=== PATIENT | male | born 1955 | race Caucasian/White ===

== ENCOUNTER 2018-03-18 17:32 | Emergency (ER) | payer BC ==
[2018-03-18] MEDS ORDERED: Aspirin 81 MG Tab.Chew PO ONE (17:41)
[2018-03-18] MEDS ORDERED: Metoprolol Tartrate 5 MG/5 ML SDV IVPUSH ONE (17:42)
[2018-03-18] MEDS ORDERED: Nitroglycerin 0.4 MG Tab.SL SL ONE (17:42)
[2018-03-18] MEDS ORDERED: Clopidogrel 75 MG Tab PO ONE ×2 (17:43→17:48)
[2018-03-18] MEDS ORDERED: Heparin Sodium 5,000 Units/ML Vial IVPUSH ONE (17:44)
[2018-03-18] MEDS ORDERED: Heparin Sodium/0.45% NaCl 25,000 UNITS/500 ML BAG IV SCH (17:45)
[2018-03-18 17:53] LABS: CHLORIDE,CL 106 mmol/L (98-109); SODIUM,NA 144 mmol/L (138-146)
[2018-03-18 17:54] LABS: ANION GAP 17.9 mmol/L (10-20)
[2018-03-18] MEDS ORDERED: Heparin Sodium/0.45% NaCl 500 ML ONE (17:55)
--- NOTE | 2018-03-18 17:56 | EDM.PDOC ---
ED HPI GENERAL MEDICAL PROBLEM - General Chief Complaint: Chest Pain Stated Complaint: chset pain Time Seen by Provider: 03/18/18 17:32 - History of Present Illness INITIAL COMMENTS - FREE TEXT/NARRATIVE: Patient is here because he started having chest pain about 20 minutes prior to arrival in the ER. He states he was lifting furniture when the pain started. He did not have any nitro on hand. He came right to the ER. Patient has a history of stents. Onset: Today, Sudden Onset Date: 03/18/18 Onset Time: 17:00 - Related Data Allergies Allergy/AdvReac Type Severity Reaction Status Date / Time No Known Drug Allergies Allergy Other Verified 07/17/17 22:56 Home Meds: Home Meds Aspirin [Halfprin] 162 mg PO DAILY 12/29/13 [History] Nitroglycerin [Nitrostat] 0.4 mg SL ASDIRECTED PRN 12/29/13 [History] Rosuvastatin [Crestor] 40 mg PO BEDTIME 12/29/13 [History] Isosorbide Mononitrate [Imdur] 30 mg PO DAILY 07/18/17 [History] buPROPion HCl [Wellbutrin Xl] 300 mg PO DAILY 07/18/17 [History] Past Medical History HEENT History: Reports: Other (See Below) Other HEENT History: TMJ Cardiovascular History: Reports: Angina, CAD, High Cholesterol, CT, Stents Respiratory History: Reports: Sleep Apnea Gastrointestinal History: Reports: GERD Neurological History: Reports: Other (See Below) Other Neuro History: tension headaches Psychiatric History: Reports: Anxiety, Depression - Past Surgical History Cardiovascular Surgical History: Reports: Coronary Artery Stent ED ROS GENERAL - Review of Systems Review Of Systems: See Below Constitutional: Denies: Fever, Chills, Weakness Respiratory: Denies: Shortness of Breath, Cough Cardiovascular: Reports: Chest Pain, Blood Pressure Problem. Denies: Palpitations GI/Abdominal: Reports: Nausea. Denies: Abdominal Pain, Vomiting Skin: Reports: No Symptoms Neurological: Reports: No Symptoms ED EXAM, GENERAL - Physical Exam Exam: See Below General Appearance: Alert, Anxious, Moderate Distress Respiratory/Chest: No Respiratory Distress, Lungs Clear, Normal Breath Sounds Cardiovascular: Normal Peripheral Pulses, Regular Rate, Rhythm Peripheral Pulses: 2+: Radial (L), Radial (R) GI/Abdominal: Normal Bowel Sounds, Soft, Non-Tender Neurological: Alert, Oriented Skin Exam: Warm, Dry, Intact, Normal Color Course - Orders/Labs/Meds Orders: Active Orders 24 hr Category Date Time Status EKG 12 Lead [EKG Documentation Completion] [RC] STAT Care 03/18/18 17:44 Active BASIC METABOLIC PANEL,BMP [CHEM] Stat Lab 03/18/18 17:41 Ordered CBC WITH AUTO DIFF [HEME] Stat Lab 03/18/18 17:41 Ordered CREATINE KINASE,CK [CHEM] Stat Lab 03/18/18 17:41 Ordered INR,PT,PROTHROMBIN TIME [COAG] Stat Lab 03/18/18 17:45 Ordered MAGNESIUM [CHEM] Stat Lab 03/18/18 17:41 Ordered TROPONIN I [CHEM] Stat Lab 03/18/18 17:41 Ordered Heparin Sodium/0.45% NaCl [Heparin 25,000 Units in 1/2 Med 03/18/18 17:45 Ordered NS 500 ML] 25,000 units in 500 ml IV TITRATE Medication Orders Heparin Sodium/Sodium Chloride (Heparin 25,000 Units In 1/2 Ns 500 Ml) 25,000 units in 500 mls @ 0 mls/hr IV TITRATE SHANTAL; Protocol Meds: Medications Generic Name Dose Route Start Last Admin Trade Name Freq PRN Reason Stop Dose Admin Heparin Sodium/Sodium Chloride 25,000 units in 500 mls @ 0 mls/hr 03/18/18 17: 45 Heparin 25,000 Units In 1/2 Ns 500 Ml IV TITRATE SHANTAL Protocol 1,000 UNITS/KG/HR Discontinued Medications Generic Name Dose Route Start Last Admin Trade Name Freq PRN Reason Stop Dose Admin Aspirin 324 mg 03/18/18 17:41 Aspirin PO 03/18/18 17:42 ONETIME ONE Clopidogrel Bisulfate 300 mg 03/18/18 17:43 Plavix PO 03/18/18 17:44 ONETIME ONE Clopidogrel Bisulfate 300 mg 03/18/18 17:48 Plavix PO 03/18/18 17:49 ONETIME ONE Heparin Sodium (Porcine) 4,000 units 03/18/18 17:44 Heparin Sodium IVPUSH 03/18/18 17:45 .BOLUS ONE Metoprolol Tartrate 5 mg 03/18/18 17:42 Lopressor IVPUSH 03/18/18 17:43 ONETIME ONE Nitroglycerin 0.4 mg 03/18/18 17:42 Nitrostat SL 03/18/18 17:43 ONETIME ONE Departure - Departure Time of Disposition: 17:52 Disposition: DC/Tfer to Acute Hospital 02 Reason for Transfer *Q: Other Condition: Good Clinical Impression: Myocardial infarct Qualifiers: Myocardial infarction type: unspecified Involved coronary artery: unspecified coronary artery Qualified Code(s): I21.9 - Acute myocardial infarction, unspecified Forms: Interfacility Transfer EMTALA - Problem List Review Problem List Initiated/Reviewed/Updated: Yes - My Orders Last 24 Hours: My Active Orders 03/18/18 17:41 BASIC METABOLIC PANEL,BMP [CHEM] Stat CBC WITH AUTO DIFF [HEME] Stat CREATINE KINASE,CK [CHEM] Stat MAGNESIUM [CHEM] Stat TROPONIN I [CHEM] Stat 03/18/18 17:44 EKG 12 Lead [EKG Documentation Completion] [RC] STAT 03/18/18 17:45 INR,PT,PROTHROMBIN TIME [COAG] Stat Heparin Sodium/0.45% NaCl [Heparin 25,000 Units in 1/2 NS 500 ML] 25,000 units in 500 ml IV TITRATE - Assessment/Plan Last 24 Hours: My Active Orders 03/18/18 17:41 BASIC METABOLIC PANEL,BMP [CHEM] Stat CBC WITH AUTO DIFF [HEME] Stat CREATINE KINASE,CK [CHEM] Stat MAGNESIUM [CHEM] Stat TROPONIN I [CHEM] Stat 03/18/18 17:44 EKG 12 Lead [EKG Documentation Completion] [RC] STAT 03/18/18 17:45 INR,PT,PROTHROMBIN TIME [COAG] Stat Heparin Sodium/0.45% NaCl [Heparin 25,000 Units in 1/2 NS 500 ML] 25,000 units in 500 ml IV TITRATE
== END 2018-03-18 18:04 | disposition short-term general hospital (02) ==
LOC: VM.ED 17:32
DX: I21.9 Acute myocardial infarction, unspecified (principal); F32.9 Major depressive disorder, single episode, unspecified; F41.9 Anxiety disorder, unspecified; Z79.82 Long term (current) use of aspirin; Z79.899 Other long term (current) drug therapy
CPT/HCPCS: 80048; 82550; 83735; 84484; 85025; 85610; 85730; 96374; 96375; 96376; 99291

== ENCOUNTER 2019-09-21 07:28 | Day surgery (SDC) | payer BC ==
[~2019-09-21 07:28] MED LIST: Lactated Ringers 1,000 ML IV SCH; Sodium Chloride 0.9% 10 ML Syringe FLUSH PRN
[2019-09-21] MEDS ORDERED: fentaNYL 100 MCG/2 ML SDV ONE (08:46)
[2019-09-21] MEDS ORDERED: Propofol 200 MG/20 ML SDV ONE ×2 (08:46→08:57)
[2019-09-21 09:45] VITALS: BP 134/74; PULSE 54
--- NOTE | 2019-09-21 12:58 | OR ---
PREOPERATIVE DIAGNOSIS: Bright red blood per rectum. POSTOPERATIVE DIAGNOSIS: Internal hemorrhoids. PROCEDURE PERFORMED: 1. Esophagogastroduodenoscopy. 2. Total flexible colonoscopy with biopsies, diagnostic. ANESTHESIA: MAC anesthesia. COMPLICATIONS: None. BLOOD LOSS: Minimal. FINDINGS: 1. No source of bleed identified on the upper endoscopy. 2. Z-line was at 40 cm. 3. Hill grade 1. 4. Sigmoid colon polyp, 3 mm, cold forceps. 5. Small internal hemorrhoids with stigmata of recent ulceration, which may explain his bleeding episode, no current no active bleeding. 6. No diverticulosis noted in the colon or arteriovenous malformation. INDICATIONS FOR PROCEDURE: Mr. Bernardo is a 63-year-old male who about 3 weeks ago had an episode of bright red blood per rectum. This persisted and he says what he felt was filling up the toilet bowl. He then presented to the clinic for evaluation. He did not require any hospital admission. The bleeding has since now stopped. He never had anything like this before. He denies a history of hemorrhoids or tissue protruding out of his bottom with straining. He also denies a history of reflux symptoms or peptic ulcer disease. He says he has not taken any antiacid medication. His last colonoscopy was in 2013 and he had a couple of polyps removed he thinks. He has never had an upper endoscopy before. DESCRIPTION OF PROCEDURE: After informed consent obtained, the patient was brought to the procedure room, placed in left lateral decubitus position. MAC anesthesia was induced by Anesthesia colleagues. A bite block was placed. The endoscope was introduced into the oropharynx through the upper esophageal sphincter down the esophagus into the stomach. The pylorus was intubated. The duodenum was examined up to the third portion and was unremarkable. The stomach was thoroughly examined and was unremarkable. There was no evidence of ulceration, recent bleeding, or Dieulafoy's lesion. There was no hiatal hernia. The esophagus was then examined on the way out and was unremarkable. We then performed our colonoscopy. Rectal exam reveals no external hemorrhoids or masses. The endoscope was then introduced into the anal canal and advanced all the way to the cecum. The terminal ileum and appendiceal orifice were photographed. The endoscope was then fully withdrawn. No pathology was noted except for what is mentioned above in the finding section. Specifically, there was no diverticulosis or arteriovenous malformations. There was no stigmata of bleeding. On retroflexed view, he had only small internal hemorrhoids. However, withdrawing the scope just into the anal canal revealed small internal hemorrhoids with what appeared to be healed ulceration in a couple of spots, which may have been the site of his recent bleeding episode. START TIME: 856. CECUM TIME: 900. STOP TIME: 906. BOWEL PREP: [place] class 3. PATHOLOGY: Sigmoid polyp Tubular adenoma Recommend repeat colonoscopy in 5 years for screening purposes. No clear source of bright red blood per rectum identified except for the small internal hemorrhoids, which seem to be the most likely culprit at this point. I recommended that he drink a lot of water and add a fiber supplement to his diet. He is also given a high- fiber diet and a pamphlet before discharge. This is for conservative management of his hemorrhoids. Should he have ongoing issues or have another episode of bleeding, he should be referred to the Surgery [facility] for anoscopy and consideration of hemorrhoidectomy. LAYLAM: 09/21/2019 09:31:48 MODL: 09/21/2019 12:52:00 /[id number] DA
--- NOTE | 2019-10-03 11:13 | LETTER ---
09/28/2019 Kishan Bernardo [address] [place] [address] RE: KISHAN BERNARDO : 1955 Dear Mr. Bernardo: I am writing to inform you the results of your recent endoscopy procedures. We did not identify a clear source of bleeding. However, on your colonoscopy you did have some small internal hemorrhoids, which had some evidence of old ulceration on them. This is possibly the source of your bleeding. If you would like further evaluation of this, I would be happy to see you in the Surgery Clinic and we can discuss if hemorrhoidectomy would be suitable for you. The other option is, as we discussed at the time after your procedure, that you can just utilize conservative management with adequate water intake and fiber supplementation in your diet. This will help soften your stool and decrease exacerbation of your hemorrhoids. Additionally, on you colonoscopy, you had 1 polyp, which is a tubular adenoma. This type of polyp does not have cancer cells, but it can become cancer in the future, which is why I remove them. You will need another colonoscopy in 5 years. Warmest regards, cc: Ange Marques,
== END 2019-09-21 10:25 | disposition home or self-care (01) ==
LOC: VM.SDS 07:28
PROVIDERS: ATTEND Student in an Organized Health Care Education/Training Program
DX: D12.5 Benign neoplasm of sigmoid colon (principal); K64.8 Other hemorrhoids; K21.9 Gastro-esophageal reflux disease without esophagitis; I10 Essential (primary) hypertension; I25.118 Atherosclerotic heart disease of native coronary artery with other forms of angina pectoris; I25.2 Old myocardial infarction; F41.9 Anxiety disorder, unspecified; F32.9 Major depressive disorder, single episode, unspecified; E78.5 Hyperlipidemia, unspecified; E66.9 Obesity, unspecified; Z68.33 Body mass index [BMI] 33.0-33.9, adult; Z86.010 Personal history of colon polyps; Z79.02 Long term (current) use of antithrombotics/antiplatelets; Z79.82 Long term (current) use of aspirin; Z79.899 Other long term (current) drug therapy; Z95.5 Presence of coronary angioplasty implant and graft
CPT/HCPCS: 43235; 45380; J2704; J3010; J7120

== ENCOUNTER 2020-03-23 21:55 | Emergency (ER) | payer BC ==
[2020-03-23 22:13] VITALS: BP 132/78; PULSE 80
--- NOTE | 2020-03-23 22:18 | EDM.PDOC ---
ED HPI GENERAL MEDICAL PROBLEM - General Chief Complaint: Back Pain or Injury Stated Complaint: LOWER BACK PAIN Time Seen by Provider: 03/23/20 22:05 Source of Information: Reports: Patient History Limitations: Reports: No Limitations - History of Present Illness INITIAL COMMENTS - FREE TEXT/NARRATIVE: Patient presents to ER with complaints of low back pain for the last 10 days. States was loading wood in to the back of his trailer around that time, was sore while doing but has had pain in his low back since then. Has had issues with intermittent pain over the years, typically sees the chiropractor about 3-4 times a year for this. Has been seen 4 times in the last week but is not getting relief. Took tylenol once earlier today as well as an old muscle relaxant but is not getting any relief. Rates his pain at an 8/10. He denies any radiation of pain down his legs, no weakness in his legs. Notes difficulty with standing straight and bending over. Onset: Gradual Duration: Day(s): Location: Reports: Back Quality: Reports: Ache Severity: Moderate Improves with: Reports: Rest Worsens with: Reports: Movement Context: Reports: Lifting Treatments MOLD FINISHER: Reports: Acetaminophen low back Pain Score (Numeric/FACES): 8 - Related Data Allergies Allergy/AdvReac Type Severity Reaction Status Date / Time No Known Drug Allergies Allergy Other Verified 03/23/20 22:13 Home Meds: Home Meds Aspirin [Halfprin] 162 mg PO DAILY 12/29/13 [History] Nitroglycerin [Nitrostat] 0.4 mg SL ASDIRECTED PRN 12/29/13 [History] Rosuvastatin [Crestor] 40 mg PO BEDTIME 12/29/13 [History] Isosorbide Mononitrate [Imdur] 30 mg PO DAILY 07/18/17 [History] buPROPion HCL [Wellbutrin Xl] 300 mg PO DAILY 07/18/17 [History] Omeprazole 20 mg PO BIDAC 09/09/19 [History] Ticagrelor [Brilinta] 1 tab PO BID 09/09/19 [History] Past Medical History HEENT History: Reports: Other (See Below) Other HEENT History: TMJ Cardiovascular History: Reports: Angina, CAD, High Cholesterol, [place], Stents Respiratory History: Reports: Sleep Apnea Gastrointestinal History: Reports: GERD Other Gastrointestinal History: Inguinal hernia Musculoskeletal History: Reports: Other (See Below) Other Musculoskeletal History: TMJ. RLS Neurological History: Reports: Other (See Below) Other Neuro History: tension headaches Psychiatric History: Reports: Anxiety, Depression Dermatologic History: Reports: Other (See Below) Other Dermatologic History: FACIAL AND NOSE LESION - Past Surgical History Cardiovascular Surgical History: Reports: Coronary Artery Stent Other Cardiovascular Surgeries/Procedures: Stents X 9 GI Surgical History: Reports: Colonoscopy Social & Family History - Tobacco Use Smoking Status *Q: Unknown Ever Smoked - Caffeine Use Caffeine Use: Reports: Coffee ED ROS GENERAL - Review of Systems Review Of Systems: See Below Constitutional: Denies: Fever, Chills, Malaise, Weakness, Decreased Appetite HEENT: Reports: No Symptoms Respiratory: Denies: Shortness of Breath, Cough Cardiovascular: Denies: Chest Pain, Edema, Lightheadedness Endocrine: Denies: Fatigue GI/Abdominal: Denies: Abdominal Pain, Nausea, Vomiting : Reports: No Symptoms Musculoskeletal: Reports: Back Pain Skin: Reports: No Symptoms Neurological: Reports: No Symptoms ED EXAM,LOWER BACK PAIN/INJURY - Physical Exam Exam: See Below Exam Limited By: No Limitations General Appearance: Alert, WD/WN, No Apparent Distress Head: Normocephalic Neck: Normal Inspection, Supple, Non-Tender Respiratory/Chest: No Respiratory Distress, Lungs Clear, Normal Breath Sounds Cardiovascular: Regular Rate, Rhythm GI/Abdominal: Normal Bowel Sounds, Soft, Non-Tender Back Exam: Decreased Range of Motion (patient unable to stand fully erect. Flexes his lumbar spine 45 degrees before pain. Pain with rotation.), Paraspinal Tenderness Extremities: Normal Inspection, No Pedal Edema Neurological: Alert, Oriented x 3 Skin Exam: Warm, Dry Course - Vital Signs Last Recorded V/S: Last Vital Signs Temp 98 F 03/23/20 21:55 Pulse 80 03/23/20 21:55 Resp 16 03/23/20 21:55 BP 132/78 03/23/20 21:55 Pulse Ox - Orders/Labs/Meds Meds: Medications Discontinued Medications Generic Name Dose Route Start Last Admin Trade Name Freq PRN Reason Stop Dose Admin Cyclobenzaprine HCl 1 packet 03/23/20 22:18 Take Home: Cyclobenzaprine 10 Mg, 4 Tab Pack PO 03/23/20 22:19 ONETIME ONE Ketorolac Tromethamine 60 mg 03/23/20 22:13 Toradol IM 03/23/20 22:14 ONETIME ONE Orphenadrine Citrate 60 mg 03/23/20 22:13 Norflex IM 03/23/20 22:14 ONETIME ONE Tramadol HCl 1 packet 03/23/20 22:18 Take Home: Tramadol 50 Mg, 4 Tab Pack PO 03/23/20 22:19 ONETIME ONE Departure - Departure Time of Disposition: 22:21 Disposition: Home, Self-Care 01 Condition: Good Clinical Impression: Low back pain - Discharge Information *PRESCRIPTION DRUG MONITORING PROGRAM REVIEWED*: No *COPY OF PRESCRIPTION DRUG MONITORING REPORT IN PATIENT AMY: No Forms: ED Department Discharge Additional Instructions: 1. Rest, no lifting or straining low back 2. Ice or heat to low back 3. Flexeril 10 mg every 8 hours as needed for muscle spasms 4. Tramadol 50 mg every 6 hours as needed for pain 5. Follow up with primary care provider on Thursday if pain persists, consider seeing physical therapy Sepsis Event Note (ED) - Evaluation Sepsis Screening Result: No Definite Risk - Focused Exam Vital Signs: Vital Signs Temp Pulse Resp BP 03/23/20 21:55 98 F 80 16 132/78
[2020-03-23] MEDS: Ketorolac 60 MG/2 ML SDV IM ONE (22:21)
[2020-03-23] MEDS: Take Home: Cyclobenzaprine 10 MG Tab, 4 Tab Pack PO ONE (22:28)
[2020-03-23] MEDS: Take Home: traMADol 50 MG, 4 Tab Pack PO ONE (22:28)
== END 2020-03-23 22:45 | disposition home or self-care (01) ==
LOC: VM.ED 21:55
DX: M54.5 Low back pain (principal); I25.10 Atherosclerotic heart disease of native coronary artery without angina pectoris; E78.00 Pure hypercholesterolemia, unspecified; I25.2 Old myocardial infarction; K21.9 Gastro-esophageal reflux disease without esophagitis; F41.9 Anxiety disorder, unspecified; F32.9 Major depressive disorder, single episode, unspecified; Z79.899 Other long term (current) drug therapy; Z79.82 Long term (current) use of aspirin; Z95.5 Presence of coronary angioplasty implant and graft
CPT/HCPCS: 96372; 99283; A9270; J1885; J2360